=== PATIENT | male | born 1950 | race Caucasian/White ===

== ENCOUNTER → 2017-07-30 12:48 | Outpatient (CLI) | payer BC, MEDICARE | END | disposition home or self-care (01) | LOC: D.US 12:30 → D.ECHO 13:30 | DX: I10 Essential (primary) hypertension (principal) ==

== ENCOUNTER → 2017-08-01 10:55 | Outpatient (CLI) | payer BC, MEDICARE | END | disposition home or self-care (01) | LOC: D.CT 10:55 | DX: I10 Essential (primary) hypertension (principal) ==